=== PATIENT | female | born 1935 | race Caucasian/White ===

== ENCOUNTER 2021-05-31 10:17 | Emergency (ER) | payer MEDICARE, BC ==
[2021-05-31] MEDS ORDERED: Acetaminophen 500 MG Tab PO ONE (11:46)
[2021-05-31 12:06] LABS: ANION GAP 17.2 mEq/L (7-13)
[2021-05-31] MEDS ORDERED: Sodium Chloride 0.9% 500 ML IV SCH (12:30)
[2021-05-31 12:34] LABS: CORONAVIRUS COVID-19 NAA NEGATIVE (NEGATIVE)
== END 2021-05-31 14:45 | disposition home or self-care (01) ==
LOC: DL.ED 10:17
DX: J06.9 Acute upper respiratory infection, unspecified (principal); I48.91 Unspecified atrial fibrillation; K21.9 Gastro-esophageal reflux disease without esophagitis; J44.9 Chronic obstructive pulmonary disease, unspecified; Z88.1 Allergy status to other antibiotic agents; Z88.0 Allergy status to penicillin; Z79.01 Long term (current) use of anticoagulants; Z20.822 Contact with and (suspected) exposure to COVID-19
CPT/HCPCS: 0240U; 36415; 71045; 80053; 81001; 83605; 83880; 84484; 85025; 85610; 87040; 93005; 99284; A9270; J7040